=== PATIENT | female | born 2000 | race Caucasian/White ===

== ENCOUNTER 2023-10-07 09:01 | Outpatient (CLI) | payer OTHER | END 2023-10-07 09:02 | disposition home or self-care (01) | LOC: ULT 09:01 | PROVIDERS: ATTEND Nurse Practitioner Family | DX: R10.2 Pelvic and perineal pain (principal); K58.9 Irritable bowel syndrome, unspecified; N83.201 Unspecified ovarian cyst, right side | CPT/HCPCS: 76700; 76856; 93976 ==